=== PATIENT | female | born 1995 | race African-American/Black ===

== ENCOUNTER 2017-05-23 17:21 | Emergency (ER) | payer OTHER ==
[~2017-05-23] VITALS: Ht 157.5 cm; Wt 59.0 kg
[2017-05-23] MEDS ORDERED: NKM (17:43)
[2017-05-23] MEDS ORDERED: Lidocaine 1% MPF 10mg/ml 5ml INJ ONE (18:00)
[2017-05-23] MEDS ORDERED: Tetanus/Diptheria/Pertussis Vaccine 0.5ml Syr IM ONE (18:00)
[2017-05-23] MEDS ORDERED: IBUPROFEN600 MG ORAL (18:34)
[2017-05-23 18:51] VITALS: BP 96/64
--- NOTE | 2017-05-23 19:53 | Emergency Room Report ---
History of Present Illness General Chief Complaint: Laceration Source: Patient Present Illness HPI The patient is a 22-year-old female [id number] presenting for right hand injury at work. She states that she was using a knife which slipped and she cut her right thumb. This occurred 30 minutes prior to arrival. She noticed pain and bleeding. Pain is now a 2 out of 10 dull ache and does not radiate. Worse with touch. she denies any numbness or tingling. She denies any other symptoms Allergies: Coded Allergies: No Known Allergies (Unverified , 05/23/17) Patient History Past Medical History: see triage record Pertinent Family History: none Now: No Immunizations: other - unknown last tetanus Reviewed Nursing Documentation: PMH: Agreed; PSxH: Agreed Nursing Documentation-PMH Past Medical History: No Stated History Review of Systems All Other Systems: negative except mentioned in HPI Physical Exam Vital Signs Date Time Temp Pulse Resp B/P (MAP) Pulse Ox O2 Delivery O2 Flow Rate FiO2 05/23/17 17:39 98.3 55 17 96/64 100 Room Air 98.2 Sp02 EP Interpretation: reviewed, normal General Appearance: no apparent distress, alert, GCS 15, non-toxic Head: normocephalic, atraumatic Eyes: bilateral eye normal inspection, bilateral eye PERRL ENT: hearing grossly normal, normal pharynx, no angioedema, normal voice Musculoskeletal: back normal, gait/station normal, normal range of motion Neurologic: alert, oriented x3, responsive, motor strength/tone normal, sensory intact, speech normal Psychiatric: judgement/insight normal, memory normal, mood/affect normal, no suicidal/homicidal ideation Skin: normal color, normal turgor, laceration - 2cm linear laceration to R dorsal thumb proximal to IPJ Lymphatic: no adenopathy Procedures Splinting Splinting : Consent: Verbal Location: R thumb Pre-Made Type: metal Splint: finger Pre-Proc Neuro Vasc Exam: normal Post-Proc Neuro Vasc Exam: normal Patient Tolerated: Well Complications: None Laceration/Wound Repair Laceration/Wound Repair : Consent: Verbal Wound Location: upper extremity Wound's Depth, Shape: superficial, linear Wound Length (cm): 2 Wound Explored: clean Irrigated w/ Saline (ccs): 100 Betadine Prep?: Yes Anesthesia: 1% Lidocaine Volume Anesthetic (ccs): 5 Wound Debrided: minimal Wound Repaired With: sutures Suture Size/Type: 5:0, proline Number of Sutures: 3 Layer Closure?: No Sterile Dressing Applied?: Yes Splint Applied?: Yes Sling Applied?: No Patient Tolerated: Well Complications: None Medical Decision Making PA Attestation Dr. Santana is my supervising physician. Patient management was discussed with my supervising physician Diagnostic Impression: Primary Impression: Thumb laceration Qualified Codes: S61.021A - Laceration with foreign body of right thumb without damage to nail, initial encounter ER Course The patient is a 22-year-old female [id number] presenting for right hand injury at work. Ddx considered include but not limited to fracture, tendon/ligament injury, avulsion, nerve damage PE: NAD 2cm linear laceration to R dorsal thumb proximal to IPJ. Full AROM intact. SILT The wound was irrigated with normal saline and cleaned with betadine. A 27g needle was used to administer 5mL of lidocaine w.o epi for digital block. 3 sutures were placed with 5-0 prolene. The wound was well approximated and the patient tolerated the procedure well. The wound was then cleaned and bacitracin was applied. A metal finger splint was applied The patient will continue to keep the wound clean and dry and will followup with PMD and workers compensation. Suture instructions provided. ER precautions are given Last Vital Signs Date Time Temp Pulse Resp B/P (MAP) Pulse Ox O2 Delivery O2 Flow Rate FiO2 05/23/17 18:51 98.3 17 96/64 100 Room Air 98.2 05/23/17 17:39 55 Status: improved Disposition: HOME, SELF-CARE Condition: Improved Scripts Ibuprofen* (MOTRIN*) 600 Mg Tablet 600 MG ORAL Q8H PRN for For Pain, #30 TAB 0 Refills Prov: YONY WELLS P.A. 05/23/17 Referrals: NOT CHOSEN IPA/MD,REFERRING (PCP) Patient Instructions: Laceration Care, Adult Additional Instructions: I discussed my findings with the patient. All questions and concerns have been answered. Treatment and medication compliance have been addressed. I advised the patient that they need to follow up with PMD in 5-7 days for wound check and suture removal. If you are unable to see PMD, return to the ED in 5-7 days. Return to ED if pain remains or worsens, you notice discharge from the wound, the wound continues to bleed, the suture/s fall out, you notice a fever or chills, or for any reason. Patient is advised to keep the wound clean and dry. Patient verbalized understanding of discharge instructions. YONY WELLS May 23, 2017 19:52
== END 2017-05-23 18:53 | disposition home or self-care (01) ==
LOC: EMR 18:00
DX: S61.021A Laceration with foreign body of right thumb without damage to nail, initial encounter (principal); Z23 Encounter for immunization; W26.0XXA Contact with knife, initial encounter; Y93.9 Activity, unspecified; Y99.0 Civilian activity done for income or pay
CPT/HCPCS: 90471; 90715; 99284

== ENCOUNTER 2017-06-04 11:40 | Emergency (ER) | payer OTHER ==
[~2017-06-04] VITALS: Ht 157.5 cm; Wt 59.0 kg
[~2017-06-04 11:40] MED LIST: IBUPROFEN600 MG ORAL; NKM
--- NOTE | 2017-06-04 12:16 | Emergency Room Report ---
History of Present Illness General Chief Complaint: Wound Recheck/Suture Removal Source: Patient Present Illness HPI 22 YO Female presents to the ED c/o having 3 sutures that need to be removed s/ p wound closure 10 days ago. Patient reports She cut herself at work. Patient denies bleeding, crusting, erythema or purulent drainage. Denies pain or tenderness. denies difficulty moving affected extremity. Tetanus UTD. Allergies: Coded Allergies: No Known Allergies (Unverified , 05/23/17) Patient History Past Medical History: see triage record Past Surgical History: none Pertinent Family History: none Last Menstrual Period: 05/21/17 Now: No Reviewed Nursing Documentation: PMH: Agreed; PSxH: Agreed Nursing Documentation-PMH Past Medical History: No Stated History Review of Systems All Other Systems: negative except mentioned in HPI Physical Exam Vital Signs Date Time Temp Pulse Resp B/P (MAP) Pulse Ox O2 Delivery O2 Flow Rate FiO2 06/04/17 11:54 98.1 50 14 93/55 98 Room Air 98.1 Sp02 EP Interpretation: reviewed, normal General Appearance: no apparent distress, alert, GCS 15, non-toxic Head: normocephalic, atraumatic ENT: hearing grossly normal, normal voice Neck: full range of motion Respiratory: speaking full sentences Cardiovascular #1: regular rate, rhythm, normal capillary refill Musculoskeletal: back normal, gait/station normal, normal range of motion, non- tender Neurologic: alert, oriented x3, responsive, motor strength/tone normal, sensory intact, speech normal, grossly normal Psychiatric: judgement/insight normal Skin: normal color, no rash, warm/dry, well hydrated, wd healing/no infection noted - dorsal left thumb, [address] Lymphatic: no adenopathy Medical Decision Making PA Attestation Dr. Swift is my supervising Physician whom patient management has been discussed with. Diagnostic Impression: Primary Impression: Encounter for removal of sutures ER Course 22 YO Female presents to the ED c/o having 3 sutures on the left thumb that need to be removed s/p wound closure 10 days ago. Patient reports She cut herself at work. Patient denies bleeding, crusting, erythema or purulent drainage. Denies pain or tenderness. denies difficulty moving affected extremity. Tetanus UTD. . Ddx considered but are not limited to laceration, tendon injury, cellulitis, dehiscence. Vital signs: are WNL, pt. is afebrile H&PE are most consistent with: healed laceration of the right hand, dorsal aspect of the thum ORDERS: none required at this time, the diagnosis is clinical ED INTERVENTIONS: - 3 Sutures removed. DISCHARGE: At this time pt. is stable for d/c to home. Will provide printed patient care instructions, and any necessary prescriptions. Care plan and follow up instructions have been discussed with the patient prior to discharge. Last Vital Signs Date Time Temp Pulse Resp B/P (MAP) Pulse Ox O2 Delivery O2 Flow Rate FiO2 06/04/17 11:54 98.1 50 14 93/55 98 Room Air 98.1 Disposition: HOME, SELF-CARE Condition: Stable Scripts Emollient Combination No.46 (MEDERMA) 20 Gm Cream..g. 1 APPLIC TP TID, #20 GM 2 Refills Prov: Kelsey Walker 06/04/17 Patient Instructions: Suture Removal, Care After Additional Instructions: Take medications as directed. Follow up with a Primary Care Provider in 3-5 days, even if your symptoms have resolved. --Please review list of primary care clinics, if you do not already have a primary care provider - Please note that this Emergency Department Report was dictated using [employer] secy technology software, occasionally this can lead to erroneous entry secondary to interpretation by the dictation equipment. Kelsey Walker Jun 04, 2017 12:16
[2017-06-04] MEDS ORDERED: MEDERMA20 GM TP (12:18)
[2017-06-04 12:19] VITALS: BP 97/60
[2017-06-04 12:21] VITALS: BP 97/60
== END 2017-06-04 12:21 | disposition home or self-care (01) ==
LOC: EMR 12:10
DX: Z48.02 Encounter for removal of sutures (principal)
CPT/HCPCS: 99283